=== PATIENT | male | born 1960 | race Caucasian/White ===

== ENCOUNTER 2022-09-09 13:02 | Outpatient (CLI) | payer OTHER ==
--- NOTE | 2022-09-09 13:55 | SLEEP CARE CONSULTATION ---
Information from patient questionnaire entered by Juliette Ponce. I have reviewed and concur with the information entered by Juliette Ponce. This document represents the service I personally performed and the decisions made by me, Karolyn Teresa ARNP. History of Present Illness Service Date and Time: 09/09/2022 1302 Reason for Visit: New patient, sleep apnea on CPAP therapy Chief Complaint: reports: Other (UPDATE SUPPLIES) Usual bedtime: 12-1AM Time it takes to fall asleep: 5MIN Snores at night: Yes Observed to quit breathing while asleep: No Sleeps alone due to snoring: No Number of times waking at night: 0-1 Reasons for waking at night: reports: Bathroom Toss, Turn, or Twitch while sleeping: No Recalls having dreams: Yes Usually gets out of bed at: 8-9AM Feels refreshed in the morning: Yes Morning headache: No Sleepy or fatigued during the day: No Ever fallen asleep while driving: No Takes day naps: No Dreams during day naps: No Prior sleep studies: Yes Year and Where: LONG TIME AGO [facility] Additional HPI information: DAWOOD ALFARO was previously diagnosed to have very severe, AHI 82.6, obstructive sleep apnea-hypopnea syndrome document with sleep study dated 12/11/2006 and comes in today to establish care for CPAP therapy. - Parasomnia Symptoms Ever been unable to move upon waking from sleep: No Walks in sleep: No Talks in sleep: No Ever acted out dreams in sleep: No Ever felt weak in the knees when startled or emotional: No Bothered by creepy, crawly, restless sensations in legs: No Problems with memory or concentration: No CPAP Compliance Data - Data Reviewed with Patient Average duration of nightly device use: 7 hours 40 minutes Compliance rate %: 100 (30/30 days used) Current pressure setting (cmH2O): 12-20 (avg 16) Average residual AHI: 4.6 Central apnea: 0.3 Obstructive apnea: 2.3 Average large leak: 2 minutes 50 seconds Compliance data discussion: Patient has been getting his supplies online and would like to get set up with a DME supplier. He has a [employer]star Bobby machine that was just replaced with a new machine. He has not started using his new Bobby machine. He is using a Resmed medium Mirage Micro nasal mask. Subjective Patient concerns: denies: aerophagia, mask discomfort, air blowing in eyes, mask leak noise, condensation in mask/hose, nasal congestion, dry mouth, nose, throat, epistaxis Observed to snore while using device: No Current pressure setting perceived as: comfortable On therapy, patient: reports: sleeping better, awakening more refreshed, being more awake and alert during the day, more rested overall. denies: drowsiness while driving Initial [place] Sleepiness Scale score: 2 (09/09/22) Past Medical History Past Medical History: reports: Hypertension, Diabetes, Arthritis Social History The patient's occupation is a RE. Patient is and lives in [place]. Have you smoked in the past 12 months: No Years of smokin Quit date: 2004 Alcohol use: Yes Alcohol amount and frequency: 1-2 DRINKS MONTHLY Caffeine use: Yes Caffeine amount and frequency: 2 COFFEE PER WEEK DAY Family History Family history of sleep disordered breathing: Yes Family Hx Sleep Apnea: Father: Snoring Allergies and Home Medications Known drug allergies: Yes (PCN, SULFA) Drug allergies reviewed: Yes Home medication list reviewed: Yes Allergy and home medication list: Allergies Penicillins Allergy (Verified 09/08/22 16:19) Unknown Sulfa (Sulfonamide Antibiotics) Allergy (Verified 09/08/22 16:19) Unknown Medications: Gemfibrozil 600 mg, bid Trulicity 1.5/0.5 injection weekly Lisinopril 20 mg, daily Glipizide 10 mg, bid Fish oil B12 Review of Systems Weight loss over past 5 years: 40-50 Cardiovascular: reports: high blood pressure Gastrointestinal: denies: heartburn Neurological: denies: headaches Psychiatric: denies: anxiety, depression Ear/Nose/Throat: reports: nasal congestion, sinus problems, dry mouth/throat, wisdom teeth removed. denies: tonsillectomy Musculoskeletal: reports: joint pain, back pain Immunologic: reports: sneezing, allergies to food or environment Physical Exam Vital signs obtained and entered by: JULIETTE Smith MA Blood Pressure: 146/76 (LEFT ARM) Cuff size: regular Heart Rate: 71 O2 Saturation: 98 Height: 6 ft Weight: 279 lb 9.6 oz (with clothes/shoes) Body Mass Index: 37.9 BMI Classification: Obese Neck circumference: 20.25 Heart: regular rate and rhythm Lungs: clear bilaterally Impression and Plan 1. Obstructive Sleep Apnea-Hypopnea Syndrome, very severe, with good treatment compliance and good apnea control. On CPAP therapy, the patient has better sleep quality and is more rested overall. Patient has significant improvement of their sleep apnea and is satisfied with current CPAP therapy. Patient denies problems with oral dryness, nasal congestion, epistaxis, skin irritation or aerophagia. For patient supply concerns. I will have my distance education coordinator inform of DME options. A [facility] prescription will then be made. Patient advised to contact this office if further supply problems. Patient's apnea severity and rationale for treatment to reduce apnea, improve sleep quality and reduce cardiovascular and cerebrovascular events was reviewed. I also reviewed the benefit of consistent device use of CPAP for hypertension and diabetes. 2. Obesity, unspecified. Currently patients BMI is 37.9. Obesity increases the risk of apnea, CPAP pressure requirements and overall health risks especially cardiovascular and diabetes. Thus, patient is advised to continue to try to lose weight. * Continue auto CPAP pressure at 12-20 cmH2O * Transfer DME * Update supplies * Notify me if snoring with mask or feeling that the pressure is too much or too little * Attempt to lose weight * Call this office if any problems using CPAP * Return for follow up in 1 year, or sooner if concerns arise Counseling Topics: Spare mask, Weight loss health impact Visit Type: In Office Time Spent with Patient (minutes): 34 Provider Statement: I spent 100% of the Face to Face Visit with the patient with greater than 50% spent counseling the patient and coordination of care.
[2022-09-09 14:12] VITALS: BP 146/76
== END 2022-09-09 13:03 | disposition home or self-care (01) ==
LOC: SC 13:02
PROVIDERS: ATTEND Nurse Practitioner Family
DX: G47.33 Obstructive sleep apnea (adult) (pediatric) (principal); Z87.891 Personal history of nicotine dependence; E66.9 Obesity, unspecified; Z68.37 Body mass index [BMI] 37.0-37.9, adult
CPT/HCPCS: 99203; 99212